=== PATIENT | male | born 1990 | race Caucasian/White ===

== ENCOUNTER 2021-01-13 14:14 | Emergency (ER) | payer OTHER | END 2021-01-13 14:50 | disposition home or self-care (01) | LOC: FER 14:14 | DX: S62.316A Displaced fracture of base of fifth metacarpal bone, right hand, initial encounter for closed fracture (principal); F17.200 Nicotine dependence, unspecified, uncomplicated; W19.XXXA Unspecified fall, initial encounter | CPT/HCPCS: 73130 ==